=== PATIENT | female | born 1965 | race Caucasian/White ===

== ENCOUNTER 2016-12-23 11:40 | Emergency (ER) | payer BC ==
[~2016-12-23] VITALS: Ht 165.1 cm; Wt 55.0 kg
[~2016-12-23 11:40] MED LIST: METAM PO
[2016-12-23 11:51] VITALS: Ht 165.1 cm; Wt 55.0 kg
[2016-12-23] MEDS ORDERED: SOD CHLORIDE 0.9% 1,000 ML IV STA (12:50)
[2016-12-23] MEDS ORDERED: LIDOCAINE/MYLANTA 40 ML BTL PO ONE (13:00)
[2016-12-23] MEDS ORDERED: PANTOPRAZOLE 40 MG INJ IV ONE (13:00)
[2016-12-23 13:28] LABS: ADD SCAN DIFF NO
[2016-12-23 13:31] LABS: BASOPHILS % 0.2 % (0.0-2.0); EOSINOPHILS # 0.1 10^3/ul (0.0-0.5); EOSINOPHILS % 2.3 % (0.0-7.0); HEMATOCRIT 38.4 % (37.0-47.0); HEMOGLOBIN 13.2 g/dl (12.0-16.0); LYMPHOCYTES # 1.8 10^3/ul (0.8-2.9); LYMPHOCYTES % 30.3 % (15.0-51.0); MEAN CORPUSCULAR HEMOGLOBIN 30.8 pg (29.0-33.0); MEAN CORPUSCULAR HGB CONC 34.4 g/dl (32.0-37.0); MEAN CORPUSCULAR VOLUME 89.7 fl (82.0-101.0); MEAN PLATELET VOLUME 10.9 fl (7.4-10.4); MONOCYTE # 0.5 10^3/ul (0.3-0.9); MONOCYTES % 7.9 % (0.0-11.0); NEUTROPHIL # 3.6 10^3/ul (1.6-7.5); NEUTROPHILS % 59.1 % (39.0-77.0); PLATELET COUNT 230 10^3/UL (140-415); RED BLOOD COUNT 4.28 10^6/ul (4.20-5.40); RED CELL DISTRIBUTION WIDTH 12.3 % (11.5-14.5); WHITE BLOOD COUNT 6.1 10^3/ul (4.8-10.8)
[2016-12-23 13:41] LABS: ALBUMIN 4.2 g/dl (3.3-4.9); POTASSIUM 3.9 mmol/L (3.5-5.1)
[2016-12-23 13:43] LABS: CREATININE 0.61 mg/dl (0.44-1.00)
[2016-12-23 13:44] LABS: ALBUMIN/GLOBULIN RATIO 1.27; BILIRUBIN,INDIRECT 0.3 mg/dl (0-1.1); BILIRUBIN,TOTAL 0.3 mg/dl (0.2-1.3); CALCIUM 9.2 mg/dl (8.4-10.2); TOTAL PROTEIN 7.5 g/dl (6.1-8.1)
[2016-12-23 14:26] LABS: ADD UMIC YES; URINE BILIRUBIN (Dip) NEGATIVE (NEGATIVE); URINE BLOOD (Dip) NEGATIVE (NEGATIVE); URINE COLOR LT. YELLOW (YELLOW); URINE GLUCOSE (Dip) NEGATIVE (NEGATIVE); URINE KETONES (Dip) NEGATIVE (NEGATIVE); URINE LEUKOCYTE ESTERASE (Dip) 1+ (NEGATIVE); URINE NITRITE (Dip) NEGATIVE (NEGATIVE); URINE TOTAL PROTEIN (Dip) NEGATIVE (NEGATIVE); URINE UROBILINOGEN (Dip) 0.2 E.U./dL (0.1-1.0)
[2016-12-23 14:37] LABS: BACTERIA,URINE FEW; URINE RBCS NONE SEEN /HPF (0)
[2016-12-23] MEDS ORDERED: morphine 4 MG/ML VIAL IV STA (14:40)
[2016-12-23] MEDS ORDERED: PANT40TA3 PO (15:53)
[2016-12-23 16:06] VITALS: BP 128/78; PULSE 98; RESP 18; TEMP 98.7
[2016-12-23] MEDS ORDERED: CEPH-443 PO (16:27)
--- NOTE | 2016-12-23 17:34 | ERD ---
ER Documentation Chief Complaint Date/Time DATE: 12/23/16 TIME: 17:30 Chief Complaint Complains of abdominal pain HPI 51-year-old female with a past medical history of hypertension presents to the ED complaining of left and epigastric abdominal pain that started intermittently 1 year ago. States that sometimes it radiates to her flank. Reports that it got worse earlier today and she had 3 episodes of nonbilious nonbloody vomiting. States that she has decreased appetite and the pain is worse with eating. States that she received an endoscopy 2 months ago and was negative for any ulcers. Describes pain as burning and rates it a 10 out of 10. States that she is taking omeprazole which has slightly alleviated her pain. States that she had normal bowel movements daily. Denies any dysuria, urgency, frequency, chest pain, shortness of breath, diarrhea. Ports that this feels like the same epigastric pain that she has experienced since 1 year ago. States that her machine ii engraver is Dr. Li. ROS All systems reviewed and are negative except as per history of present illness. Medications Home Meds Active Scripts Cephalexin* (Keflex*) 500 Mg Capsule, 500 MG PO QID for 7 Days, CAP Prov:JOAQUINA WILLARD PA-C 12/23/16 Pantoprazole* (Protonix*) 40 Mg Tablet.dr, 40 MG PO DAILY, #20 TAB Prov:JOAQUINA WILLARD PA-C 12/23/16 Reported Medications Psyllium* (Metamucil*) 1 Pkt Susp, 1 PKT PO DAILY for CONSTIPATION, PACKET 10/20/16 Allergies Allergies: Coded Allergies: No Known Allergy (Unverified , 07/05/15) PMhx/Soc History of Surgery: Yes (CSECTION, BENIGN BREAST MASS) Anesthesia Reaction: No Hx Neurological Disorder: No Hx Respiratory Disorders: No Hx Cardiac Disorders: Yes (HX HYPELIPIDEMIA, CONTROLLED) Hx Psychiatric Problems: No Hx Miscellaneous Medical Probl: Yes (MENOPAUSE) Hx Alcohol Use: Yes (OCCASIONAL) Hx Substance Use: No Hx Tobacco Use: No Physical Exam Vitals Vital Signs Date Time Temp Pulse Resp B/P Pulse Ox O2 Delivery O2 Flow Rate FiO2 12/23/16 16:06 98.7 98 18 128/78 98 Room Air 12/23/16 11:51 97.1 71 20 122/68 100 Physical Exam Const: [id number], well-nourished. In no acute distress. Head: Atraumatic, normocephalic Eyes: Normal Conjunctiva without injection. No purulent discharge. ENT: Normal external ear, nose. Moist oropharynx without tonsillar exudates. Non -erythematous pharynx. Uvula midline. No drooling. No trismus. Neck: No cervical midline tenderness. Full range of motion. No meningismus. No cervical lymphadenopathy. No JVD. Resp: Clear to auscultation bilaterally. No wheezing, rhonchi, rales, or crackles. No accessory muscle use. No retractions. Cardio: Regular rate and rhythm. No murmurs, rubs or gallops. Abd: Soft, epigastric and left upper quadrant abdominal pain, non distended. Normal bowel sounds. No palpable masses. No rebound tenderness. No guarding. Negative McBurney's point. Negative psoas sign. Negative obturator sign. Skin: No petechiae or rashes Back: No midline tenderness. No CVA tenderness. Ext: No cyanosis, or edema. Neur: Awake and alert. Normal gait. Normal coordination. Psych: Normal Mood and Affect Result Diagram: 12/23/16 1310 12/23/16 1310 Results 24 hrs Laboratory Tests Test 12/23/16 13:10 Alanine Aminotransferase (ALT/SGPT) 44IU/L Albumin 4.2g/dl Albumin/Globulin Ratio 1.27 Alkaline Phosphatase 77IU/L Anion Gap 15 Aspartate Amino Transf (AST/SGOT) 30IU/L Basophils # 0.010^3/ul Basophils % 0.2% Blood Urea Nitrogen 11mg/dl Calcium Level 9.2mg/dl Carbon Dioxide Level 32mmol/L Chloride Level 100mmol/L Creatinine 0.61mg/dl Direct Bilirubin 0.00mg/dl Eosinophils # 0.110^3/ul Eosinophils % 2.3% Globulin 3.30g/dl Glucose Level 89mg/dl Hematocrit 38.4% Hemoglobin 13.2g/dl Indirect Bilirubin 0.3mg/dl Lipase 41U/L Lymphocytes # 1.810^3/ul Lymphocytes % 30.3% Mean Corpuscular Hemoglobin 30.8pg Mean Corpuscular Hemoglobin Concent 34.4g/dl Mean Corpuscular Volume 89.7fl Mean Platelet Volume 10.9fl Monocytes # 0.510^3/ul Monocytes % 7.9% Neutrophils # 3.610^3/ul Neutrophils % 59.1% Nucleated Red Blood Cells # 0.010^3/ul Nucleated Red Blood Cells % 0.0/100WBC Platelet Count 84119^3/UL Potassium Level 3.9mmol/L Red Blood Count 4.2810^6/ul Red Cell Distribution Width 12.3% Sodium Level 143mmol/L Total Bilirubin 0.3mg/dl Total Protein 7.5g/dl Urine Bacteria FEW Urine Bilirubin NEGATIVE Urine Clarity CLEAR Urine Color LT. YELLOW Urine Epithelial Cells FEW Urine Glucose NEGATIVE% Urine Hemoglobin NEGATIVE Urine Ketones NEGATIVE Urine Leukocyte Esterase 1+ Urine Microscopic RBC NONE SEEN/HPF Urine Microscopic WBC 0-2/HPF Urine Nitrite NEGATIVE Urine Specific [place] 1.010 Urine Total Protein NEGATIVE Urine Urobilinogen 0.2 E.U./dL Urine pH 8.0 White Blood Count 6.110^3/ul Current Medications Medications (Trade) Dose Ordered Sig/Jim Route PRN Reason Start Time Stop Time Status Last Admin Dose Admin Sodium Chloride (NS) 1,000 ml @ 1,000 mls/hr Q1H STAT IV 12/23/16 12:50 12/23/16 13:49 DC 12/23/16 13:03 Pantoprazole (Protonix Iv) 40 mg ONCE ONCE IV 12/23/16 13:00 12/23/16 13:01 DC 12/23/16 13:02 Miscellaneous Medication (Gi Cocktail (2)) 40 ml ONCE ONCE PO 12/23/16 13:00 12/23/16 13:01 DC 12/23/16 13:02 Morphine Sulfate (morphine) 4 mg ONCE STAT IV 12/23/16 14:40 12/23/16 14:42 DC 12/23/16 14:48 Procedures/MDM 51-year-old female with no significant past medical history presents the ED complaining of epigastric and left upper quadrant abdominal pain. Patient is afebrile and nontoxic-appearing. Patient has normal vital signs. Patient was further worked up with CBC, CMP, lipase, UA, urine , Patient's pain and symptoms have improved after treatment with CBC: No leukocytosis. No e/o of systemic infection. No e/o anemia. CMP: No e/o severe acidosis, alkalosis, renal failure, diabetic ketoacidosis, liver disease Lipase within normal limits. Urine: 1+ leukocyte esterase, no nitrites, no hematuria. Urine : negative Patient will be treated for a possible urinary tract infection with 1+ leukocyte esterase noted on her urinalysis. No leukocytosis. There is low suspicion for acute abdomen, cholecystitis, choledocholithiasis, pancreatitis. Patient states that this is the same pain that she is experience with epigastric pain and has seen a machine ii engraver, Dr. Li. I strictly instructed patient to follow-up with Dr. Li for further evaluation and treatment. A differential diagnosis considered includes but is not limited to gastritis, GERD, peptic ulcer disease, cholecystitis, choledocholithiasis, cholangitis, pancreatitis, appendicitis, bowel obstruction, ileus, volvulus, nephrolithiasis, pyelonephritis, hepatitis, perforated viscus, diverticulitis, abdominal hernia, acute abdomen, mesenteric ischemia or other emergent conditions. Discharge medications: Keflex, Protonix Follow up with primary care physician in 1-2 days for referral to machine ii engraver. Instructed patient to return to the ED sooner for any worsening symptoms. Patient's questions were answered. Patient understood and agreed with discharge plan. Patient discharged stable. Departure Diagnosis: Primary Impression: Epigastric pain Additional Impression: Left flank pain Condition: Stable Patient Instructions: Urinary Tract Infections in Women, Gastritis Vs. Ulcer, Epigastric Pain (Uncertain Cause) Referrals: [facility] YOU HAVE RECEIVED A MEDICAL SCREENING EXAM AND THE RESULTS INDICATE THAT YOU DO NOT HAVE A CONDITION THAT REQUIRES URGENT TREATMENT IN THE EMERGENCY DEPARTMENT. FURTHER EVALUATION AND TREATMENT OF YOUR CONDITION CAN WAIT UNTIL YOU ARE SEEN IN YOUR DOCTORS OFFICE WITHIN THE NEXT 1-2 DAYS. IT IS YOUR RESPONSIBILITY TO MAKE AN APPOINTMENT FOR FOLOW-UP CARE. IF YOU HAVE A PRIMARY DOCTOR --you should call your primary doctor and schedule an appointment IF YOU DO NOT HAVE A PRIMARY DOCTOR YOU CAN CALL OUR PHYSICIAN REFERRAL HOTLINE AT IF YOU CAN NOT AFFORD TO SEE A PHYSICIAN YOU CAN CHOSE FROM THE FOLLOWING [facility] CL[facility]ICS [facility] [address] [place] [facility] [address] [facility] [address] [facility] [address] [facility] [address] [facility]. [facility] [address] [facility]. [facility] YOU HAVE RECEIVED A MEDICAL SCREENING EXAM AND THE RESULTS INDICATE THAT YOU DO NOT HAVE A CONDITION THAT REQUIRES URGENT TREATMENT IN THE EMERGENCY DEPARTMENT. FURTHER EVALUATION AND TREATMENT OF YOUR CONDITION CAN WAIT UNTIL YOU ARE SEEN IN YOUR DOCTORS OFFICE WITHIN THE NEXT 1-2 DAYS. IT IS YOUR RESPONSIBILITY TO MAKE AN APPOINTMENT FOR FOLOW-UP CARE. IF YOU HAVE A PRIMARY DOCTOR --you should call your primary doctor and schedule and appointment IF YOU DO NOT HAVE A PRIMARY DOCTOR YOU CAN CALL OUR PHYSICIAN REFERRAL HOTLINE AT . IF YOU CAN NOT AFFORD TO SEE A PHYSICIAN YOU CAN CHOSE FROM THE FOLLOWING [facility] INSTITUTIONS: [facility] [address] [place] [address] [facility] [address] [place] [address] [facility] + [facility] [address] [place] [address] [facility]SPECIALTIES Additional Instructions: Mike Li, [facility]. Regrese a estas instalaciones si no se mejora pam esperbamos o pam le claudiamos. JOAQUINA WILLARD PA-C Dec 23, 2016 17:34
== END 2016-12-23 16:42 | disposition home or self-care (01) ==
LOC: FTE 11:40
DX: R10.13 Epigastric pain (principal); R10.12 Left upper quadrant pain; I10 Essential (primary) hypertension
CPT/HCPCS: 80053; 81001; 81003; 83690; 85025; C9113; J2270; J7030; Z7610; 36415; 96374; 96375